=== PATIENT | female | born 1965 | race Caucasian/White ===

== ENCOUNTER → 2019-07-27 | Outpatient (CLI) | payer OTHER ==
--- NOTE | 2019-07-27 13:30 | REP ---
CAROTID ULTRASOUND: Real-time ultrasound evaluation and duplex Doppler interrogation of the extracranial carotid vasculature is performed. There is mild plaquing and narrowing in both carotid bulbs extending into the internal and external carotid arteries. Luminal narrowing is less than 50%. There is no evidence of hemodynamically significant stenosis of either internal carotid artery. Normal flow velocities are seen. The vertebral arteries demonstrate normal direction of flow. RIGHT LEFT Peak systolic velocity ICA 68.0 cm/s 64.8 cm/s End diastolic velocity ICA 23.9 cm/s 32 cm/s Peak systolic velocity CCA 72.5 cm/s 81 cm/s Peak systolic velocity ECA 83.2 cm/s 69.2 cm/s ICA/CCA ratio 0.94 0.8 IMPRESSION: Bilateral luminal narrowing of the internal carotid arteries less than 50%. No evidence of hemodynamically significant stenosis. Electronically Signed by Adrian Restrepo MD 07/27/2019 01:22 P
== END ==
LOC: M RAD 12:44
PROVIDERS: ATTEND Internal Medicine Cardiovascular Disease
DX: R09.89 Other specified symptoms and signs involving the circulatory and respiratory systems (principal)

== ENCOUNTER → 2019-07-27 | Outpatient (REF) | payer OTHER ==
[2019-07-27 14:47] LABS: APPEARANCE, URINE CLEAR (CLEAR); BACTERIA, URINE AUTO NEGATIVE (NEGATIVE); BILIRUBIN, URINE AUTO NEGATIVE (NEGATIVE); BLOOD, URINE BLOOD 1+ (NEGATIVE); COLOR, URINE STRAW (YELLOW); GLUCOSE, URINE (UA) AUTO NEGATIVE (NEGATIVE); KETONE, URINE AUTO NEGATIVE (NEGATIVE); LEUKOCYTE ESTERASE, URINE AUTO NEGATIVE (NEGATIVE); NITRITE, URINE AUTO NEGATIVE (NEGATIVE); PROTEIN, URINE AUTO NEGATIVE (NEGATIVE); RBC, URINE AUTO 1 /HPF (0-3); SPECIFIC GRAVITY URINE AUTO 1.003 (1.002-1.035); SQUAMOUS EPITHELIAL CELL UR AU 0 /HPF (0-6); UROBILINOGEN, URINE AUTO 0.2 mg/dL (0.0-2.0); WBC, URINE AUTO 1 /HPF (0-3)
== END ==
LOC: M LAB REF 14:32
PROVIDERS: ATTEND Internal Medicine Cardiovascular Disease
DX: R10.12 Left upper quadrant pain (principal)

== ENCOUNTER 2020-12-16 17:23 | Emergency (ER) | payer OTHER ==
[~2020-12-16] VITALS: Ht 162.6 cm; Wt 54.5 kg
[2020-12-16 17:24] VITALS: BP 133/85
--- NOTE | 2020-12-16 18:19 | REPVR ---
PROCEDURE INFORMATION: Exam: CT Head Without Contrast Exam date and time: 12/16/2020 5:41 PM Age: 55 years old Clinical indication: Syncope and collapse; Additional info: Syncopal TECHNIQUE: Imaging protocol: Computed tomography of the head without contrast. Radiation optimization: All CT scans at this facility use at least one of these dose optimization techniques: automated exposure control; mA and/or kV adjustment per patient size (includes targeted exams where dose is matched to clinical indication); or iterative reconstruction. COMPARISON: US Duplex,carotid (complete) 07/27/2019 1:05 PM FINDINGS: Brain: Small left frontal lobe subcortical white matter hypodensities are nonspecific, may reflect chronic small vessel ischemic change. No evolving territorial infarct or intracranial hemorrhage seen. Cerebral ventricles: No ventriculomegaly. Paranasal sinuses: Mild polypoid mucosal thickening in the dependent left maxillary sinus. Mild bilateral ethmoid mucosal thickening. Mastoid air cells: Visualized mastoid air cells are well aerated. Bones/joints: No acute fracture seen. Soft tissues: Unremarkable. IMPRESSION: 1. No acute intracranial abnormality seen. 2. No evidence of recent infarct or hemorrhage. 3. Small left frontal lobe subcortical white matter hypodensities are nonspecific, potentially represent chronic small vessel ischemic change. MRI brain may be performed for further evaluation, as needed. Electronically signed by: Stacey Sharif On 12/16/2020 18:18:59 PM
--- NOTE | 2020-12-16 18:24 | REPVR ---
PROCEDURE INFORMATION: Exam: CT Cervical Spine Without Contrast Exam date and time: 12/16/2020 5:41 PM Age: 55 years old Clinical indication: Weakness; Additional info: Syncopal TECHNIQUE: Imaging protocol: Computed tomography images of the cervical spine without contrast. Radiation optimization: All CT scans at this facility use at least one of these dose optimization techniques: automated exposure control; mA and/or kV adjustment per patient size (includes targeted exams where dose is matched to clinical indication); or iterative reconstruction. COMPARISON: US Duplex,carotid (complete) 07/27/2019 1:05 PM FINDINGS: Bones/joints: Trace 1-2 mm of grade 1 anterolisthesis of C3 on C4, probably chronic. No acute fracture seen. Prior ACDF from C5 through C7. Disc height loss and spondylosis with uncovertebral arthropathy at C4-C5. Minimal uncovertebral arthropathy at C3-C4. No severe stenoses. Discs/Spinal canal/Neural foramina: See "Bones/joints" finding. Lungs: Lung apices are normal. Soft tissues: Unremarkable. IMPRESSION: No cervical spine fracture seen. Electronically signed by: Stacey Sharif On 12/16/2020 18:24:34 PM
--- NOTE | 2020-12-19 13:57 | ED PDOC ---
Post-Departure Follow-Up radiology report faxed to Harmony Bills MD Dec 19, 2020 13:57
== END 2020-12-16 19:05 | disposition left against medical advice (07) ==
LOC: M ED 17:23
DX: Z53.21 Procedure and treatment not carried out due to patient leaving prior to being seen by health care provider (principal)

== ENCOUNTER 2023-09-22 10:40 | Emergency (ER) | payer OTHER, SELFPAY ==
[~2023-09-22] VITALS: Ht 162.6 cm; Wt 52.9 kg
[2023-09-22] MEDS: TETRACAINE 0.5% OPHTH SOLN 4ML OS ONE (13:45)
[2023-09-22 14:15] VITALS: BP 171/78; TEMP 97.7; O2SAT 99
== END 2023-09-22 14:17 | disposition home or self-care (01) ==
LOC: M ED 10:40
DX: H43.89 Other disorders of vitreous body (principal); I48.91 Unspecified atrial fibrillation; I25.2 Old myocardial infarction; F17.210 Nicotine dependence, cigarettes, uncomplicated